=== PATIENT | female | born 1965 | race American Indian/Alaskan Native ===

== ENCOUNTER 2019-04-02 17:00 | Emergency (ER) | payer OTHER ==
--- NOTE | 2019-04-02 17:46 | Emergency Department Report ---
Blank Doc - Documentation Documentation: 53-year-old female that presents with URI and SOB. This initial assessment/diagnostic orders/clinical plan/treatment(s) is/are subject to change based on patient's health status, clinical progression and re- assessment by fellow clinical providers in the ED. Further treatment and workup at subsequent clinical providers discretion. Patient/guardians urged not to elope from the ED as their condition may be serious if not clinically assessed and managed. Initial orders include: 1- Patient sent to [facility] for further evaluation and treatment 2- CXR
--- NOTE | 2019-04-02 18:14 | XRay Report ---
CHEST 2 VIEWS INDICATION / CLINICAL INFORMATION: MAIN: cough w/ SOB SINCE LAST NIGHT. COMPARISON: Chest x-ray 02/25/2007 FINDINGS: SUPPORT DEVICES: None. HEART / MEDIASTINUM: No significant abnormality. LUNGS / PLEURA: New rounded parenchymal density right lower lobe characteristic for probable bronchop neumonia. No pneumothorax. ADDITIONAL FINDINGS: No significant additional findings. IMPRESSION: 1. Probable right lower lobe bronchopneumonia. Follow-up x-ray or CT is recommended in 4-6 weeks to c onfirm resolution in order to exclude underlying mass Signer Name: Sonu Jaramillo MD Signed: 04/02/2019 6:10 PM Workstation Name: [id number]
[2019-04-02] MEDS ORDERED: LIDOCAINE-MPF (1%) 10 MG/1 ML VIAL 5 ML INFILTRATI ONE (21:17)
[2019-04-02] MEDS ORDERED: AZITHROMYCIN 250 MG TAB PO STA (21:18)
--- NOTE | 2019-04-02 22:32 | Emergency Department Report ---
ED General Adult HPI - General Chief complaint: Adult Asthma Stated complaint: SOB Time Seen by Provider: 04/02/19 17:45 Source: patient Mode of arrival: Ambulatory Limitations: No Limitations - Related Data Previous Rx's Medication Instructions Recorded Last Taken Type Diphenhydramine HCl [Benadryl 25 mg PO Q6H #30 tablet 12/01/15 Unknown Rx Allergy TAB] Prednisone [predniSONE 10 mg 10 mg PO .TAPER #1 tab.ds.pk 12/01/15 Unknown Rx (6-Day Pack, 21 Tabs)] Albuterol INH(or & Nicu Only) 1 puff IH Q4-6H PRN #1 inha 04/02/19 Unknown Rx [ProAir HFA Inhaler] Amoxicillin/Potassium Clav 1 each PO BID #20 tablet 04/02/19 Unknown Rx [Augmentin 875-125 Tablet] Azithromycin [Zithromax] 250 mg PO QDAY #4 tablet 04/02/19 Unknown Rx guaiFENesin/CODEINE [Robitussin AC] 5 ml PO Q6H PRN #120 ml 04/02/19 Unknown Rx Allergies Allergy/AdvReac Type Severity Reaction Status Date / Time No Known Allergies Allergy Unverified 12/01/15 18:38 ED Review of Systems ROS: Stated complaint: SOB Other details as noted in HPI Comment: All other systems reviewed and negative ED Past Medical Hx - Past Medical History Previous Medical History?: Yes Hx Hypertension: Yes - Surgical History Past Surgical History?: Yes Additional Surgical History: Gallstones, fibroids - Social History Smoking Status: Current Every Day Smoker Substance Use Type: None - Medications Home Medications: Home Medications Medication Instructions Recorded Confirmed Last Taken Type Diphenhydramine HCl [Benadryl 25 mg PO Q6H #30 tablet 12/01/15 Unknown Rx Allergy TAB] Prednisone [predniSONE 10 mg 10 mg PO .TAPER #1 tab.ds.pk 12/01/15 Unknown Rx (6-Day Pack, 21 Tabs)] Albuterol INH(or & Nicu Only) 1 puff IH Q4-6H PRN #1 inha 04/02/19 Unknown Rx [ProAir HFA Inhaler] Amoxicillin/Potassium Clav 1 each PO BID #20 tablet 04/02/19 Unknown Rx [Augmentin 875-125 Tablet] Azithromycin [Zithromax] 250 mg PO QDAY #4 tablet 04/02/19 Unknown Rx guaiFENesin/CODEINE [Robitussin AC] 5 ml PO Q6H PRN #120 ml 04/02/19 Unknown Rx ED Physical Exam - General Limitations: No Limitations General appearance: alert, in no apparent distress - Head Head exam: Present: atraumatic, normocephalic - Eye Eye exam: Present: normal appearance, PERRL, EOMI - ENT ENT exam: Present: mucous membranes moist - Neck Neck exam: Present: normal inspection - Respiratory Respiratory exam: Present: normal lung sounds bilaterally, decreased breath sounds. Absent: respiratory distress, rhonchi, stridor - Cardiovascular Cardiovascular Exam: Present: regular rate, normal rhythm. Absent: systolic murmur, diastolic murmur, rubs, gallop - GI/Abdominal GI/Abdominal exam: Present: soft, normal bowel sounds - Extremities Exam Extremities exam: Present: normal inspection - Back Exam Back exam: Present: normal inspection - Neurological Exam Neurological exam: Present: alert, oriented X3 - Psychiatric Psychiatric exam: Present: normal affect, normal mood - Skin Skin exam: Present: warm, dry, intact, normal color. Absent: rash ED Course Vital Signs 04/02/19 17:45 Temperature 98.7 F Pulse Rate 91 H Respiratory 20 Rate Blood Pressure 189/90 [Right] O2 Sat by Pulse 100 Oximetry ED Medical Decision Making - Radiology Data Radiology results: report reviewed [address] [address] XRay Report Signed Patient: RAISSA MILLAN MR#: [id number] : 1965 Acct:[id number] Age/Sex: 53 / F ADM Date: 04/02/19 Loc: ED Attending Dr: Ordering Physician: CRISTA FIGUEROA NP Date of Service: 04/02/19 Procedure(s): XR chest routine 2V Accession Number(s): [id number] cc: CRISTA FIGUEROA NP Fluoro Time In Minutes: CHEST 2 VIEWS INDICATION / CLINICAL INFORMATION: MAIN: cough w/ SOB SINCE LAST NIGHT. COMPARISON: Chest x-ray 02/25/2007 FINDINGS: SUPPORT DEVICES: None. HEART / MEDIASTINUM: No significant abnormality. LUNGS / PLEURA: New rounded parenchymal density right lower lobe characteristic for probable bronchopneumonia. No pneumothorax. ADDITIONAL FINDINGS: No significant additional findings. IMPRESSION: 1. Probable right lower lobe bronchopneumonia. Follow-up x-ray or CT is recommended in 4-6 weeks to confirm resolution in order to exclude underlying mass Signer Name: Sonu Jaramillo MD Signed: 04/02/2019 6:10 PM Workstation Name: [id number] Transcribed By: TL Dictated By: Sonu Jaramillo MD Electronically Authenticated By: Sonu Jaramillo MD Signed Date/Time: 04/02/19 1810 - Medical Decision Making presents with shortness of breath, cough, and malaise concerning for pneumonia. Workup: CXR Defer lab work at this time given patient well appearing with stable vital signs and without recent hospitalization or care facility stay Given History, Exam, and Workup presentation most consistent with pneumonia.Presentation not consistent with PE, COPD exacerbation, Pneumothorax, TB, Atypical ACS, Esophageal Rupture, Toxic Exposure, Foreign Body Airway Obstruction. Findings: Single Focus Consolidation on CXR Rx: Augmentin and zithromax Disposition: Discharge home. Return precautions discussed at bedside and patient in agreement with plan. Prompt follow up with primary care provider advised. Critical care attestation.: If time is entered above; I have spent that time in minutes in the direct care of this critically ill patient, excluding procedure time. ED Disposition Clinical Impression: Right lower lobe pneumonia, Indigestion Disposition: DC-01 TO HOME OR SELFCARE Is pt being admited?: No Does the pt Need Aspirin: No Condition: Stable Instructions: Bacterial Pneumonia (ED) Additional Instructions: Indigestion Indigestion is often a sign of an underlying problem, such as gastroesophageal reflux disease (GERD), ulcers, or gallbladder disease, rather than a condition of its own. Also called dyspepsia, it is defined as a persistent or recurrent pain or discomfort in the upper abdomen. What Are the Symptoms of Indigestion? The symptoms of indigestion can include: Burning in the stomach or upper abdomen Abdominal pain Bloating (full feeling) Belching and gas Nausea and vomiting Acidic taste Growling stomach These symptoms may increase in times of stress. People often have heartburn (a burning sensation deep in the chest) along with indigestion. But heartburn itself is a different symptom that may indicate another problem. Who Is at Risk for Indigestion? People of all ages and of both sexes are affected by indigestion. It's extremely common. An individual's risk increases with: Excess alcohol consumption Use of drugs that may irritate the stomach, such as aspirin and other pain r elievers Conditions where there is an abnormality in the digestive tract, such as an ulcer Emotional problems, such as anxiety or depression What Causes Indigestion? Indigestion has many causes, including: Diseases: Ulcers GERD Stomach cancer (rare) Gastroparesis (a condition where the stomach doesn't empty properly; this often occurs in people with diabetes) Stomach infections Irritable bowel syndrome Chronic pancreatitis Thyroid disease Medications: Aspirin and other painkillers, such as NSAIDs like ibuprofen (Motrin, Advil), and naproxen (Naprosyn) Estrogen and oral contraceptives Steroid medications Certain antibiotics Thyroid medicines Lifestyle: Eating too much, eating too fast, eating high-fat foods, or eating during stressful situations Drinking too much alcohol Cigarette smoking Stress and fatigue Indigestion is not caused by excess stomach acid. Swallowing excessive air when eating may increase the symptoms of belching and bloating, which are often associated with indigestion. Sometimes people have persistent indigestion that is not related to any of these factors. This type of indigestion is called functional, or non-ulcer dyspepsia. How Is Indigestion Diagnosed? If you are experiencing symptoms of indigestion, make an appointment to see your doctor. Because indigestion is such a broad term, it is helpful to provide your doctor with a precise description of the discomfort you are experiencing. In describing the symptoms, try to define where in the abdomen the discomfort usually occurs. Your doctor will rule out any underlying conditions that may be causing your symptoms. Your doctor may perform several blood tests and you may have X-rays of the stomach or small intestine. Your doctor may also suggest you have an upper endoscopy to look closely at the inside of the stomach. During the procedure, an endoscope -- a flexible tube that contains a light and a camera to produce images from inside the body -- is used to look inside your stomach. What Is the Treatment for Indigestion? Because indigestion is a symptom rather than a disease, treatment usually depends upon the underlying condition causing the indigestion. How Can I Prevent Indigestion? The best way to prevent indigestion is to avoid the foods and situations that seem to cause it. Keeping a food diary is helpful in identifying foods that cause indigestion. Here are some other suggestions: Eat small meals so the stomach does not have to work as hard or as long. Eat slowly. Avoid foods that contain high amounts of acids, such as citrus fruits and tomatoes. Reduce or avoid foods and beverages that contain caffeine. If stress is a trigger for your indigestion, learn new methods for managing stress, such as relaxation and biofeedback techniques. If you smoke, quit. Smoking can irritate the lining of the stomach. Cut back on alcohol consumption, because alcohol can also irritate the stomach lining. Avoid wearing tight-fitting garments, because they tend to compress the stomach, which can cause its contents to enter the esophagus. Don't exercise with a full stomach. Rather, exercise before a meal or at least one hour after eating a meal. Don't lie down right after eating. Wait at least three hours after your last meal of the day before going to bed. Sleep with your head elevated (at least 6 inches) above your feet and use pillows to prop yourself up. This will help allow digestive juices to flow into the intestines rather than to the esophagus. When Should I Call the Doctor About Indigestion? Because indigestion can be a sign of a more serious health problem, call your doctor if you have any of the following symptoms: Vomiting or blood in vomit (the vomit may look like coffee grounds) Weight loss Loss of appetite Black, tarry stools or visible blood in stools Severe pain in upper right abdomen Pain in upper or lower right abdomen Discomfort unrelated to eating Symptoms similar to indigestion may be caused by heart attacks. If indigestion is unusual, accompanied by shortness of breath, sweating, chest pain, or pain radiating to the jaw, neck, or arm, seek medical attention immediately. Please also try simethicone daily for 2-3 weeks and probiotics with Acidophilus Referrals: KARLI SLATER MD [Primary Care Provider] - 3-5 Days
[2019-04-02 23:11] VITALS: BP 183/94
== END 2019-04-02 22:43 | disposition home or self-care (01) ==
LOC: ED 17:00
DX: J18.1 Lobar pneumonia, unspecified organism (principal); K30 Functional dyspepsia; I10 Essential (primary) hypertension; F17.200 Nicotine dependence, unspecified, uncomplicated; Z98.890 Other specified postprocedural states; Z79.899 Other long term (current) drug therapy
CPT/HCPCS: 71046; 96372; 99283; J0696